=== PATIENT | female | born 1975 | race Caucasian/White ===

== ENCOUNTER 2023-02-05 13:16 | Emergency (ER) | payer MEDICAID ==
[~2023-02-05] VITALS: Ht 157.5 cm; Wt 72.5 kg
[~2023-02-05 13:16] MED LIST: NITROFURANTOIN; PYRIDIUM
[2023-02-05] MEDS ORDERED: IBUPROFEN 400MG TABLET PO ONE (16:15)
[2023-02-05] MEDS ORDERED: IBUP-2028 MT (18:06)
[2023-02-05 18:26] VITALS: BP 135/70
== END 2023-02-05 18:27 | disposition home or self-care (01) ==
LOC: ER 13:16
DX: S93.402A Sprain of unspecified ligament of left ankle, initial encounter (principal); M79.672 Pain in left foot; J45.909 Unspecified asthma, uncomplicated; E78.00 Pure hypercholesterolemia, unspecified; Z90.49 Acquired absence of other specified parts of digestive tract; Z98.890 Other specified postprocedural states; Z86.59 Personal history of other mental and behavioral disorders; W01.0XXA Fall on same level from slipping, tripping and stumbling without subsequent striking against object, initial encounter; Y93.89 Activity, other specified; Y92.89 Other specified places as the place of occurrence of the external cause; Y99.8 Other external cause status
CPT/HCPCS: 73610; 73630; 99284